=== PATIENT | male | born 1960 | race Caucasian/White ===

== ENCOUNTER 2019-06-07 12:32 | Outpatient (CLI) | payer MEDICARE, MEDICAID, SELFPAY ==
--- NOTE | 2019-06-07 12:37 | MR_ITS ---
WS: [id number] MRI RIGHT SHOULDER NONCONTRAST TECHNIQUE: Sagittal T2, coronal T1, T2 and proton density imaging. Axial gradient PDE imaging. CLINICAL INFORMATION: ACUTE PAIN OF RT SHOULDER COMPARISON: None. FINDINGS: Moderate degenerative arthritis AC joint. Mild downsloping of the acromion. Subacromial spurring. Noah ma at the AC joint. Narrowing of the subacromial space. Tendinopathy in the distal supraspinatus. Mil d tendinopathy in the infraspinatus. Normal teres minor. Subscapularis appears intact. Normal biceps tendon in the bicipital groove. Small amount of edema along the rotator interval. Mild tendinopathy involving the intra-articular biceps tendon. T2 hyperintense 8 mm cystic appearing lesio n in the subcoracoid recess adjacent to or involving the coracohumeral ligament. This likely represen ts a ligamentous or ganglion cyst. Biceps labral anchor appears intact. Mild degenerative fraying of the glenoid labrum which appears gr ossly intact. MR/MR shoulder RT wo con* [id number] IMPRESSION: 1. Degenerative arthritis at the AC joint with moderate edema and mild downslo ping of the acromion. Narrowing of the subacromial space. 2. Tendinopathy in the distal supraspinatus and infraspinatus. No full-thickne ss rotator cuff tears. 3. Rotator cuff is otherwise intact. 4. Mild tendinopathy intra-articular biceps tendon 5. Small 8 mm T2 hyperintense cystic-appearing lesion along the coracohumeral ligament likely due to ligamentous or ganglion cyst 6. Mild degenerative fraying of the glenoid labrum which appears grossly intac t.
== END 2019-06-07 12:33 | disposition home or self-care (01) ==
PROVIDERS: Family Provider Registered Nurse; PCP Registered Nurse; Visit Provider Specialist
DX: M19.011 Primary osteoarthritis, right shoulder (principal); M25.511 Pain in right shoulder; M89.49 Other hypertrophic osteoarthropathy, multiple sites
CPT/HCPCS: 73221

== ENCOUNTER → 2019-07-13 08:34 | Outpatient (BNVA) | payer MEDICARE, MEDICAID, SELFPAY | PROVIDERS: Family Provider Registered Nurse; PCP Registered Nurse; Visit Provider Anesthesiology | DX: G89.29 Other chronic pain (principal); M47.22 Other spondylosis with radiculopathy, cervical region; M25.511 Pain in right shoulder; M25.512 Pain in left shoulder; S68.119A Complete traumatic metacarpophalangeal amputation of unspecified finger, initial encounter; X58.XXXA Exposure to other specified factors, initial encounter; Z79.891 Long term (current) use of opiate analgesic | CPT/HCPCS: 99214 ==

== ENCOUNTER → 2019-10-10 08:41 | Outpatient (BNVA) | payer MEDICARE, MEDICAID, SELFPAY | PROVIDERS: Family Provider Registered Nurse; PCP Registered Nurse; Visit Provider Nurse Practitioner | DX: M54.2 Cervicalgia (principal); M54.41 Lumbago with sciatica, right side; M54.42 Lumbago with sciatica, left side; Z79.891 Long term (current) use of opiate analgesic | CPT/HCPCS: 99212; 99213 ==

== ENCOUNTER → 2019-10-11 10:41 | Outpatient (BNVA) | payer MEDICARE, MEDICAID, SELFPAY | PROVIDERS: Family Provider Registered Nurse; PCP Registered Nurse; Visit Provider Nurse Practitioner Family | DX: M25.50 Pain in unspecified joint (principal) | CPT/HCPCS: 85651; 86431 ==

== ENCOUNTER → 2019-11-08 10:58 | Outpatient (BNVA) | payer MEDICARE, MEDICAID, SELFPAY | PROVIDERS: Family Provider Registered Nurse; PCP Registered Nurse; Visit Provider Specialist | DX: M25.512 Pain in left shoulder (principal); M25.511 Pain in right shoulder; N39.9 Disorder of urinary system, unspecified; S39.840A Fracture of corpus cavernosum penis, initial encounter; X58.XXXA Exposure to other specified factors, initial encounter | CPT/HCPCS: 73030; 81001 ==

== ENCOUNTER → 2019-11-09 08:20 | Outpatient (BNVA) | payer MEDICARE, MEDICAID, SELFPAY | PROVIDERS: Family Provider Registered Nurse; PCP Registered Nurse; Visit Provider Specialist | DX: M25.512 Pain in left shoulder (principal); G89.29 Other chronic pain; M25.511 Pain in right shoulder | CPT/HCPCS: 80053; 85651; 86140; 86431 ==

== ENCOUNTER → 2020-05-28 08:06 | Outpatient (BNVA) | payer MEDICARE, MEDICAID, SELFPAY | PROVIDERS: Family Provider Registered Nurse; PCP Registered Nurse; Visit Provider Specialist | DX: M25.512 Pain in left shoulder (principal); G89.29 Other chronic pain | CPT/HCPCS: 73030 ==

== ENCOUNTER 2020-06-02 15:32 | Outpatient (CLI) | payer MEDICARE, MEDICAID, SELFPAY ==
--- NOTE | 2020-06-02 15:38 | MR_ITS ---
WS: [id number] MRI LEFT SHOULDER HISTORY: PAIN COMPARISON: 05/17/2019 TECHNIQUE: Multiplanar sequences of the shoulder joint are submitted. Artifact through the patient's shoulder due to plate and screw fixation at the clavicle. There is significant artifact through the AC joint with blooming. No os acromion is appreciated. Lillian ps tendon remains in normal position. There is significant artifact obscuring the supraspinatus tendon and muscle. No secondary findings of significant rotator cuff tear. There is no retraction of the tendon or atrophy. No edema. No infrasp inatus or subscapularis tendon tear or edema. There is a small amount of fluid adjacent to the avionics repair technician ior lateral humeral head. There is increased signal which is focal in the posterior labrum. This radha esponds to the signal seen on the prior study consistent with a SLAP tear. The entire anterior labrum cannot be seen secondary to artifact. MR/MR shoulder LT wo con* [id number] IMPRESSION: 1. Significantly limited evaluation of the rotator cuff due to artifact from t [place] patient's plate and screw fixation in the clavicle. 2. No secondary findings of supraspinatus tendon tear. There is no muscle atro phy or edema. No retraction of the tendon. The remaining rotator cuff is intact . 3. Only limited evaluation of the labrum. Again noted is increased signal in t he posterior labrum but the anterior labrum cannot be evaluated due to artifact .
== END 2020-06-02 15:33 | disposition home or self-care (01) ==
LOC: RADWPI 15:36
PROVIDERS: PCP Registered Nurse; Visit Provider Specialist
DX: M25.512 Pain in left shoulder (principal)
CPT/HCPCS: 73221

== ENCOUNTER → 2020-06-10 08:23 | Outpatient (BNVA) | payer MEDICARE, MEDICAID, SELFPAY | PROVIDERS: PCP Family Medicine; Referring Provider Specialist; Visit Provider Anesthesiology Pain Medicine | DX: M25.512 Pain in left shoulder (principal); S22.32XA Fracture of one rib, left side, initial encounter for closed fracture; X58.XXXA Exposure to other specified factors, initial encounter; Z87.81 Personal history of (healed) traumatic fracture; Z98.890 Other specified postprocedural states; Z79.891 Long term (current) use of opiate analgesic | CPT/HCPCS: 99205 ==

== ENCOUNTER → 2023-10-20 10:01 | Outpatient (BNVA) | payer MEDICARE, MEDICAID, SELFPAY | PROVIDERS: PCP Family Medicine; Visit Provider Physician Assistant | DX: M12.811 Other specific arthropathies, not elsewhere classified, right shoulder (principal) | CPT/HCPCS: 20610; 73030; 99213; J3301 ==

== ENCOUNTER → 2024-01-24 09:32 | Outpatient (BNVA) | payer MEDICARE, MEDICAID, SELFPAY | PROVIDERS: PCP Family Medicine; Visit Provider Student in an Organized Health Care Education/Training Program | DX: M75.41 Impingement syndrome of right shoulder (principal); M19.011 Primary osteoarthritis, right shoulder | CPT/HCPCS: 99213 ==